=== PATIENT | female | born 1960 | race Caucasian/White ===

== ENCOUNTER 2017-12-22 10:15 | Day surgery (SDC) | payer OTHER ==
[2017-12-21 12:14] VITALS: BMI 34.3
[2017-12-22] MEDS ORDERED: Midazolam 2 MG/2 ML VIAL ONE (12:26)
[2017-12-22] MEDS ORDERED: Propofol 10 mg/ml Inj (20 ML) ONE ×2 (12:26→12:48)
[2017-12-22] MEDS: Lactated Ringer's 1,000 ML IV ONE (12:30)
[2017-12-22] MEDS ORDERED: Esmolol 100 mg/10ml Inj IV ONE (12:41)
[2017-12-22] MEDS ORDERED: Labetalol 25mg/5ml Syringe ONE (12:46)
[2017-12-22 13:56] VITALS: TEMP 96.8; O2SAT 99
[2017-12-22 14:09] VITALS: BP 123/97; PULSE 77; RESP 19
== END 2017-12-22 14:10 | disposition home or self-care (01) ==
LOC: C.ENDO 10:15
PROVIDERS: ATTEND Internal Medicine Gastroenterology
DX: R93.3 Abnormal findings on diagnostic imaging of other parts of digestive tract (principal); D12.2 Benign neoplasm of ascending colon; D12.4 Benign neoplasm of descending colon; D12.5 Benign neoplasm of sigmoid colon; K64.1 Second degree hemorrhoids; I10 Essential (primary) hypertension; E11.9 Type 2 diabetes mellitus without complications; I25.10 Atherosclerotic heart disease of native coronary artery without angina pectoris; Z95.5 Presence of coronary angioplasty implant and graft; I25.2 Old myocardial infarction; Z79.84 Long term (current) use of oral hypoglycemic drugs; Z79.899 Other long term (current) drug therapy